=== PATIENT | male | born 1985 | race Caucasian/White ===

== ENCOUNTER 2018-12-22 16:52 | Emergency (ER) | payer BC ==
[~2018-12-22] VITALS: Ht 177.8 cm; Wt 80.9 kg
[2018-12-22 16:56] VITALS: BP 124/73; TEMP 100.4
[2018-12-22 18:28] VITALS: PULSE 99
== END 2018-12-22 18:28 | disposition home or self-care (01) ==
LOC: COL.ER 16:52
DX: K61.1 Rectal abscess (principal)

== ENCOUNTER → 2021-05-08 | Outpatient (CLI) | payer BC | LOC: COL.RAD 12:57 | DX: N50.89 Other specified disorders of the male genital organs (principal) ==

== ENCOUNTER → 2021-07-22 | Outpatient (CLI) | payer BC | LOC: COL.RAD 12:18 | DX: N50.89 Other specified disorders of the male genital organs (principal); R93.812 Abnormal radiologic findings on diagnostic imaging of left testicle ==